=== PATIENT | male | born 1990 | race Caucasian/White ===

== ENCOUNTER 2018-02-14 13:05 | Emergency (ER) | payer SELFPAY ==
--- NOTE | 2018-02-14 15:00 | EDM.PDOC ---
ED HPI GENERAL MEDICAL PROBLEM - General Chief Complaint: Back Pain or Injury Stated Complaint: BACK PAIN KIDNEY PAIN Time Seen by Provider: 02/14/18 13:17 - History of Present Illness INITIAL COMMENTS - FREE TEXT/NARRATIVE: Based on the patient's complaint of sudden onset severe low back pain, I ordered a urinalysis and urine drug screen. I was unable to see the patient at the time, due to my need to manage a trauma patient, however, I had hoped that the test results would be back by the time I was able to see the patient. When I finished with the trauma patient and went to see the patient, his room was empty. I am now told that the patient refused to give a urine sample to the nurse, then told her that he needed to get something from his car, and kept on walking. It is most likely that the patient was drug-seeking. mid back Pain Score (Numeric/FACES): 10 - Related Data Allergies Allergy/AdvReac Type Severity Reaction Status Date / Time No Known Allergies Allergy Verified 02/14/18 13:11 Home Meds: Home Meds . [No Known Home Meds] 02/14/18 [History] Past Medical History - Past Health History Medical/Surgical History: Denies Medical/Surgical History - Infectious Disease History Infectious Disease History: Reports: Hepatitis C Social & Family History - Family History Family Medical History: Noncontributory - Tobacco Use Smoking Status *Q: Current Every Day Smoker Years of Tobacco use: 11 Packs/Tins Daily: 1 - Caffeine Use Caffeine Use: Reports: Coffee, Soda - Recreational Drug Use Recreational Drug Use: Yes Drug Use in Last 12 Months: Yes Recreational Drug Type: Reports: Methamphetamine Other Recreational Drug Type: states last used 3 months ago Course - Vital Signs Last Recorded V/S: Last Vital Signs Temp 36.1 C 02/14/18 13:09 Pulse 88 02/14/18 13:09 Resp 18 02/14/18 13:09 BP 133/77 02/14/18 13:09 Pulse Ox 100 02/14/18 13:09 - Orders/Labs/Meds Orders: Active Orders 24 hr Category Date Time Status DRUG SCREEN, URINE [URCHEM] Stat Lab 02/14/18 13:30 Ordered UA W/MICROSCOPIC [URIN] Stat Lab 02/14/18 13:30 Ordered Departure - Departure Time of Disposition: 14:58 Disposition: Left Without Being Seen 07 Condition: Good Clinical Impression: Drug-seeking behavior - Discharge Information Referrals: PCP,None [Primary Care Provider] - - My Orders Last 24 Hours: My Active Orders 02/14/18 13:30 DRUG SCREEN, URINE [URCHEM] Stat UA W/MICROSCOPIC [URIN] Stat - Assessment/Plan Last 24 Hours: My Active Orders 02/14/18 13:30 DRUG SCREEN, URINE [URCHEM] Stat UA W/MICROSCOPIC [URIN] Stat
== END 2018-02-14 14:40 | disposition left against medical advice (07) ==
LOC: JD.ED 13:05
DX: Z53.21 Procedure and treatment not carried out due to patient leaving prior to being seen by health care provider (principal)

== ENCOUNTER 2020-12-09 20:23 | Emergency (ER) | payer SELFPAY ==
--- NOTE | 2020-12-09 20:50 | EDM.PDOC ---
ED HPI GENERAL MEDICAL PROBLEM - General Chief Complaint: Genitourinary Problem Stated Complaint: SWOLLEN TESTICLE Time Seen by Provider: 12/09/20 20:32 Source of Information: Reports: Patient, RN Notes Reviewed History Limitations: Reports: No Limitations - History of Present Illness INITIAL COMMENTS - FREE TEXT/NARRATIVE: Patient is a 30-year-old male who presents to the ER for the evaluation of his right testicle swelling/mass. He notes that he developed some throbbing/dullness into the back of the right testicle roughly 4 days ago, and it seems to have worsened since then. He would rate this at about a 5 out of 10 at rest, but does shoot up to 7 or 8 out of 10 with any sort of ambulation, movement or compression. Patient states he did palpate his testicle, and did note that there was a hard like mass on the back of the right testicle that had not been there before. Patient states that he has been with the same girlfriend for 4 months, he was tested for STDs just prior to getting this girlfriend, and he notes that he has no complaints or concerns about STDs at today's visit. He also states that he did not have an undescended testicle when he was a child. Patient denies any other sick-like symptoms, fever/chills, cough/shortness of breath, nausea/vomiting/diarrhea. He has been having regular bowel movements per his self as well. He has no regular care provider. Right Groin Pain Score (Numeric/FACES): 5 - Related Data Allergies Allergy/AdvReac Type Severity Reaction Status Date / Time No Known Allergies Allergy Verified 12/09/20 20:34 Home Meds: Home Meds Doxycycline [Vibramycin] 100 mg PO BID 14 Days #28 tab 12/09/20 [Rx] Past Medical History - Past Health History Medical/Surgical History: Denies Medical/Surgical History - Infectious Disease History Infectious Disease History: Reports: Hepatitis C Social & Family History - Family History Family Medical History: No Pertinent Family History - Tobacco Use Tobacco Use Status *Q: Never Tobacco User - Caffeine Use Caffeine Use: Reports: Coffee, Energy Drinks - Recreational Drug Use Recreational Drug Use: No ED ROS GENERAL - Review of Systems Review Of Systems: Comprehensive ROS is negative, except as noted in HPI. ED EXAM, RENAL/ - Physical Exam Exam: See Below Exam Limited By: No Limitations General Appearance: Alert, WD/WN, No Apparent Distress Respiratory/Chest: No Respiratory Distress, Lungs Clear, Normal Breath Sounds, No Accessory Muscle Use, Chest Non-Tender Cardiovascular: Normal Peripheral Pulses, Regular Rate, Rhythm, No Edema GI/Abdominal: Normal Bowel Sounds, Soft, Non-Tender, No Distention, No Mass (Male) Exam: Normal Inspection, Circumcised, Testicular Tenderness (R) (the right testicle is tender to palpation, there does seem to be a harder masslike/swollen area to the epididymis that is tender to touch). No: Penile Lesions, Urethral Discharge Extremities: Normal Inspection, Normal Capillary Refill Neurological: Alert, Oriented, Normal Cognition, No Motor/Sensory Deficits Psychiatric: Normal Affect, Normal Mood Skin Exam: Warm, Dry, Intact, Normal Color, No Rash Course - Vital Signs Last Recorded V/S: Last Vital Signs Temp 98.9 F 12/09/20 20:31 Pulse 80 12/09/20 20:31 Resp 16 12/09/20 20:31 BP 137/77 12/09/20 20:31 Pulse Ox 96 12/09/20 20:31 - Orders/Labs/Meds Orders: Active Orders 24 hr Category Date Time Status Scrotum and Contents [US] Stat Exams 12/09/20 20:45 Ordered Doxycycline [Vibramycin] Med 12/09/20 22:33 Once 100 mg PO ONETIME ONE Meds: Medications Discontinued Medications Generic Name Dose Route Start Last Admin Trade Name Freq PRN Reason Stop Dose Admin Ceftriaxone Sodium 250 mg/ 0 mg 12/09/20 22:25 Lidocaine HCl 0.5 ml IM 12/09/20 22:26 ONETIME ONE - Re-Assessments/Exams Free Text/Narrative Re-Assessment/Exam: 12/09/20 20:49 Patient presents to the ER for his swollen right testicle. I have ordered ultrasound for evaluation of the area, patient denied 3 times about any thought of STDs at today's visit. STD testing will not be performed at today's visit. Notes that he has a drug patch on, so he is declining any pain medication at this time. 12/09/20 22:33 The patient's ultrasound report has come back, findings most likely consistent with right acute epididymal orchitis with a right hydrocele. There was no sign of testicular torsion. We will go ahead and start the patient on IM Rocephin, and oral doxycycline for management. I did explain to the patient while he was getting these meds and he verbalized understanding. Departure - Departure Time of Disposition: 22:34 Disposition: Home, Self-Care 01 Condition: Good Clinical Impression: Epididymitis, right Hydrocele Qualifiers: Hydrocele type: unspecified Qualified Code(s): N43.3 - Hydrocele, unspecified - Discharge Information *PRESCRIPTION DRUG MONITORING PROGRAM REVIEWED*: No *COPY OF PRESCRIPTION DRUG MONITORING REPORT IN PATIENT MARGARET: No Prescriptions: Doxycycline [Vibramycin] 100 mg PO BID 14 Days #28 tab Instructions: Epididymitis Referrals: PCP,None [Primary Care Provider] - Forms: ED Department Discharge Additional Instructions: You were seen in this ER for your testicular swelling and pain. An ultrasound was performed of the area in question, and was consistent with epididymitis/orchitis, which is swelling of the epididymis and testicle on the right side of your body. There was also a right hydrocele, which is swelling around the testicle within the scrotum itself. Management of this will be antibiotics, he received a one-time injection of Rocephin in the ER, and you have been started on the oral doxycycline for ongoing management. Dosing will be 1 tablet 2 times a day for 14 days. This medication was electronically sent to the [facility] located near [facility]. You may use 600 mg ibuprofen every 6 hours as needed for further pain relief. Please continue to use boxer briefs to help support the area, you may also use cold packs or cool compresses to the area to provide relief from the swelling. Recommend you set up care with a regular care provider, so that you can be reevaluated at some point closer to the end of the antibiotics, so the area can be reassessed and to make sure that everything is getting better as expected. Please return to the ER at any time if symptoms change or worsen. Sepsis Event Note (ED) - Evaluation Sepsis Screening Result: No Definite Risk - Focused Exam Vital Signs: Vital Signs Temp Pulse Resp BP Pulse Ox 12/09/20 20:31 98.9 F 80 16 137/77 96 - My Orders Last 24 Hours: My Active Orders 12/09/20 20:45 Scrotum and Contents [US] Stat 12/09/20 22:33 Doxycycline [Vibramycin] 100 mg PO ONETIME ONE - Assessment/Plan Last 24 Hours: My Active Orders 12/09/20 20:45 Scrotum and Contents [US] Stat 12/09/20 22:33 Doxycycline [Vibramycin] 100 mg PO ONETIME ONE
[2020-12-09] MEDS ORDERED: cefTRIAXone 250 MG, Lidocaine 1% 0.5 ML IM ONE ×2 (22:25)
[2020-12-09] MEDS ORDERED: Doxycycline 100 MG Cap PO ONE (22:33)
--- NOTE | 2020-12-10 08:23 | US ---
Testicular ultrasound: Multiple real-time images of both testicles were obtained. Comparison: No prior testicular imaging is available. Findings: Right testicle is minimally inhomogeneous with left testicle being homogeneous. No focal intratesticular mass is seen. Vascularity within the right testicle is increased as compared to the left side. Both arterial and venous blood flow are seen. Increased blood flow is also noted within the right epididymis. Small bilateral hydroceles are noted. Measurements: Right testicle: 4.0 x 2.9 x 4.3 cm Left testicle: 4.6 x 2.3 x 3.0 cm Impression: 1. Findings are suspicious for right-sided acute epididymo-orchitis. 2. Small bilateral hydroceles. 3. No additional abnormality is appreciated. Diagnostic code #3 I agree with preliminary report from [facility], finalized on 12/09/20, 11:20 PM CDT, code 1
== END 2020-12-09 22:45 | disposition home or self-care (01) ==
LOC: JD.ED 20:23
DX: N45.1 Epididymitis (principal); N43.3 Hydrocele, unspecified
CPT/HCPCS: 76870; 93975; 96372; 99284; A9270; J0696; 99283

== ENCOUNTER 2023-04-06 11:34 | Emergency (ER) | payer SELFPAY ==
[2023-04-06 12:26] LABS: BASOPHILS ABSOLUTE AUTO 0.1 K/mm3 (0.0-0.2); BASOPHILS PERCENT AUTO 0.7 % (0.0-1.0); EOSINOPHILS ABSOLUTE AUTO 0.2 K/mm3 (0.0-0.4); EOSINOPHILS PERCENT AUTO 2.7 % (0.0-6.0); HEMATOCRIT 47.2 % (42.0-52.0); HEMOGLOBIN 16.8 gm/dl (14.0-18.0); IMMATURE GRAN ABSOLUTE AUTO 0.02 K/mm3 (0.00-0.05); IMMATURE GRAN PERCENT AUTO 0.3 % (0.0-0.4); LYMPHOCYTES ABSOLUTE AUTO 2.1 K/mm3 (1.0-4.8); LYMPHOCYTES PERCENT AUTO 29.5 % (24.0-44.0); MEAN CORPUSCULAR HEMOGLOBIN 31.2 pg (28.0-32.0); MEAN CORPUSCULAR HGB CONC 35.6 g/dl (32.0-36.0); MEAN CORPUSCULAR VOLUME 87.7 fl (83.0-99.0); MEAN PLATELET VOLUME 10.1 fl (9.4-12.4); MONOCYTES ABSOLUTE AUTO 0.5 K/mm3 (0.0-0.8); MONOCYTES PERCENT AUTO 7.6 % (0.0-8.0); NEUTROPHILS ABSOLUTE AUTO 4.2 K/mm3 (1.8-7.7); NEUTROPHILS PERCENT AUTO 59.2 % (41.0-71.0); PLATELET COUNT,PLT 251 K/mm3 (150-400); RED BLOOD CELL COUNT 5.38 M/mm3 (4.52-5.90); WHITE BLOOD CELL COUNT,WBC 7.01 K/mm3 (3.9-11.3)
[2023-04-06 12:53] LABS: A/G RATIO 1.2 (1-2); ALANINE AMINOTRANSFERASE,ALT 26 U/L (16-63); ALBUMIN 4.3 g/dl (3.4-5.0); ALKALINE PHOSPHATASE 57 U/L (46-116); ASPARTATE AMNIOTRANSFERASE,AST 17 U/L (15-37); BILIRUBIN TOTAL 0.7 mg/dL (0.2-1.0); BLOOD UREA NITROGEN,BUN 16 mg/dL (7-18); BUN/CREATININE RATIO 17.8 (14-18); C-REACTIVE PROTEIN <0.2 mg/dL (<1.0); CALCIUM 9.3 mg/dL (8.5-10.1); CARBON DIOXIDE,CO2 27 mEq/L (21-32); CHLORIDE,CL 105 mEq/L (98-107); CREATININE 0.9 mg/dL (0.7-1.3); EST CRCL DRUG DOSING (CG) 116.74 mL/min; ESTIMATED GFR 116 mL/min (>60); GLUCOSE RANDOM 94 mg/dL (70-99); PROTEIN TOTAL,TP 7.9 g/dl (6.4-8.2); SODIUM,NA 142 mEq/L (136-145)
[2023-04-06 13:04] LABS: TROPONIN I HIGH SENSITIVITY < 4 pg/mL (<=76)
== END 2023-04-06 12:40 | disposition home or self-care (01) ==
LOC: JD.ED 11:34
DX: R07.89 Other chest pain (principal); F17.210 Nicotine dependence, cigarettes, uncomplicated
CPT/HCPCS: 36415; 71046; 71046-26; 80053; 84484; 85025; 85379; 86140; 93005; 93010; 99284; 99285

== ENCOUNTER 2024-03-08 07:17 | Emergency (ER) | payer OTHER ==
[2024-03-08] MEDS: Sodium Chloride 0.9% 2,000 ML IV ONE (07:57)
[2024-03-08] MEDS: Ondansetron 4 MG/2 ML SDV IVPUSH ONE (07:58)
[2024-03-08] MEDS: Famotidine 20 MG/2 ML SDV IVPUSH ONE (07:59)
[2024-03-08] MEDS: Acetaminophen 325 MG Tab PO ONE (08:00)
[2024-03-08 08:03] LABS: BASOPHILS PERCENT AUTO 0.2 % (0.0-1.0); HEMATOCRIT 44.6 % (42.0-52.0); HEMOGLOBIN 15.6 gm/dl (14.0-18.0); IMMATURE GRAN ABSOLUTE AUTO 0.02 K/mm3 (0.00-0.05); IMMATURE GRAN PERCENT AUTO 0.3 % (0.0-0.4); LYMPHOCYTES ABSOLUTE AUTO 0.4 K/mm3 (1.0-4.8); LYMPHOCYTES PERCENT AUTO 6.3 % (24.0-44.0); MEAN CORPUSCULAR HEMOGLOBIN 30.4 pg (28.0-32.0); MEAN CORPUSCULAR VOLUME 86.9 fl (83.0-99.0); MEAN PLATELET VOLUME 10.9 fl (9.4-12.4); MONOCYTES ABSOLUTE AUTO 0.3 K/mm3 (0.0-0.8); MONOCYTES PERCENT AUTO 4.2 % (0.0-8.0); NEUTROPHILS ABSOLUTE AUTO 5.8 K/mm3 (1.8-7.7); PLATELET COUNT,PLT 124 K/mm3 (150-400); RED BLOOD CELL COUNT 5.13 M/mm3 (4.52-5.90)
[2024-03-08] MEDS: Iopamidol 755 Mg/ML 100 ML Bottle IVPUSH ONE (08:17)
[2024-03-08] MEDS: Sodium Chloride 0.9% 10 ML Syringe FLUSH PRN (08:18)
[2024-03-08 08:24] LABS: LACTIC ACID 0.8 mmol/L (0.4-2.0)
[2024-03-08 08:33] LABS: POTASSIUM,K 3.5 mEq/L (3.5-5.1)
[2024-03-08 08:34] LABS: A/G RATIO 0.9 (1-2); ANION GAP 14.5 (5-15); BILIRUBIN TOTAL 0.8 mg/dL (0.2-1.0); CALCIUM 8.4 mg/dL (8.5-10.1); EST CRCL DRUG DOSING (CG) 104.09 mL/min; MAGNESIUM 1.4 mg/dL (1.8-2.4); PROTEIN TOTAL,TP 6.4 g/dl (6.4-8.2)
[2024-03-08 08:40] LABS: CORONAVIRUS COVID-19 NAA NEGATIVE (NEGATIVE); INFLUENZA A NAA NEGATIVE (NEGATIVE); RESPIRATORY SYNCYTIAL VIR NAA NEGATIVE (NEGATIVE)
[2024-03-08] MEDS ORDERED: Magnesium Sulfate (4.06 MEQ/ML) 5 GM/10 ML SDV IV ONE (09:30)
[2024-03-08] MEDS: Magnesium Sulfate/Water 4 GM in Premix Bag 1 BAG IV ONE (09:39)
[2024-03-08 09:44] LABS: APPEARANCE,URINE CLEAR (Clear); BILIRUBIN,URINE NEGATIVE (Negative); COLOR,URINE YELLOW (Yellow); GLUCOSE,URINE NEGATIVE (Negative); KETONES,URINE 1+ (Negative); LEUKOCYTE ESTERASE,URINE NEGATIVE (Negative); NITRITE,URINE NEGATIVE (Negative); OCCULT BLOOD,URINE NEGATIVE (Negative); PH,URINE 6.5 (5.0-8.0); PROTEIN,URINE TRACE (Negative)
[2024-03-08 10:20] LABS: EPITHELIAL CELLS,URINE 0-5 /hpf (0-5); RBC,URINE 0-5 /hpf (0-5); WBC,URINE 0-5 /hpf (0-5)
[2024-03-08 10:21] LABS: BACTERIA,URINE RARE /hpf (FEW); MUCUS,URINE NOT SEEN /hpf (FEW)
== END 2024-03-08 11:48 | disposition home or self-care (01) ==
LOC: JD.ED 07:17
DX: G43.909 Migraine, unspecified, not intractable, without status migrainosus (principal); A08.4 Viral intestinal infection, unspecified; E86.0 Dehydration; E83.42 Hypomagnesemia
CPT/HCPCS: 0241U; 36415; 70450; 71045; 74177; 80053; 80307; 81001; 82947; 83605; 83690; 83735; 85025; 96361; 96365; 96366; 96375; 99284; A9270; J2405; J3475; J3490; J7030; Q9967

== ENCOUNTER 2024-10-02 20:20 | Emergency (ER) | payer OTHER ==
[2024-10-02] MEDS: Ibuprofen 800 MG Tab PO ONE (20:51)
[2024-10-02] MEDS: Acetaminophen 325 MG Tab PO ONE (20:51)
== END 2024-10-02 21:25 | disposition home or self-care (01) ==
LOC: JD.ED 20:20
DX: S57.82XA Crushing injury of left forearm, initial encounter (principal); W23.1XXA Caught, crushed, jammed, or pinched between stationary objects, initial encounter
CPT/HCPCS: 73090; 99283; A9270; 99284